=== PATIENT | female | born 1990 | race Caucasian/White ===

== ENCOUNTER 2017-03-09 18:46 | Emergency (ER) | payer OTHER ==
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
--- NOTE | 2017-03-09 21:59 | ED ORDER SUMMARY ---
..... Patient: MIRZA RALPH OrderSheet [facility] VisitID: [id number] [place] [address] 27y, F Registration Date/Time: 03/09/2017 ORDER SHEET Weight: 77.1 kg (stated) Allergies: No Known Drug Allergy GENERAL ORDERS: Knee 4V Left Urgent (19:13 03/09/2017 HBivens A.R.N.P.) (Ack 19:42 RKaruga) (20:27 KKnebel R.N.) Cervical Spine 2 or 3V Urgent (19:13 03/09/2017 HBivens A.R.N.P.) (Ack 19:42 RKaruga) (20:27 KKnebel R.N.) Urine Urgent (20:02 03/09/2017 HBivens A.R.N.P.) (20:07 KKnebel R.N.) MEDICATION ORDERS: Toradol IM 60 mg (NOW) (19:13 03/09/2017 HBivens A.R.N.P.) (19:36 KKnebel R.N.) Hydrocodone-APAP PO 5/325 mg (NOW, HIGH ALERT MEDICATION) (21:20 03/09/2017 HBivens A.R.N.P.) (21:26 KKnebel R.N.) IV FLUIDS: ORDER SHEET NOTES: [Electronically signed by Yelena HernandezR.N.PLouis (23:01 03/09/2017)] [Electronically signed by Alaina Lanza R.N. (23:18 03/09/2017)] [Electronically locked/signed by Alaina Lanza R.N. (23:18 03/09/2017)]
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
--- NOTE | 2017-03-09 21:59 | ED ORDER SUMMARY ---
..... Patient: MIRZA RALPH OrderSheet [facility] VisitID: [id number] [place] [address] 27y, F Registration Date/Time: 03/09/2017 ORDER SHEET Weight: 77.1 kg (stated) Allergies: No Known Drug Allergy GENERAL ORDERS: Knee 4V Left Urgent (19:13 03/09/2017 HBivens A.R.N.P.) (Ack 19:42 RKaruga) (20:27 KKnebel R.N.) Cervical Spine 2 or 3V Urgent (19:13 03/09/2017 HBivens A.R.N.P.) (Ack 19:42 RKaruga) (20:27 KKnebel R.N.) Urine Urgent (20:02 03/09/2017 HBivens A.R.N.P.) (20:07 KKnebel R.N.) MEDICATION ORDERS: Toradol IM 60 mg (NOW) (19:13 03/09/2017 HBivens A.R.N.P.) (19:36 KKnebel R.N.) Hydrocodone-APAP PO 5/325 mg (NOW, HIGH ALERT MEDICATION) (21:20 03/09/2017 HBivens A.R.N.P.) (21:26 KKnebel R.N.) IV FLUIDS: ORDER SHEET NOTES: [Electronically signed by Yelena HernandezR.N.PLouis (23:01 03/09/2017)] [Electronically signed by Alaina Lanza R.N. (23:18 03/09/2017)] [Electronically locked/signed by Alaina Lanza R.N. (23:18 03/09/2017)]
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
--- NOTE | 2017-03-09 23:19 | ED MED RECONCILIATION SUMMARY ---
Patient: MIRZA RALPH Medication Reconciliation Report [facility] VisitID: [id number] [place] [address] 27y, F Registration Date/Time: 03/09/2017 Weight: 77.1 kg Height/Length: 70 in. BMI: 24.4 ALLERGIES: No Known Drug Allergy The patient's Home Medications are listed below: NONE. The source(s) of the original Home Medication information: patient The following Medications were given to the patient in the Emergency Department: Toradol [IM] IM 60 mg, administered: 03/09/2017 7:36:00 PM Hydrocodone-APAP [PO] PO 1 tab, administered: 03/09/2017 9:26:00 PM The following Medications were prescribed to the patient: Flexeril 10 mg: Take 1 orally every 8 hours as needed for muscle spasm. Dispense twenty (20). No refills. Substitution is permissible. -- Yelena Hernandez A.R.N.P. Ultram 50 mg tablets: take 1-2 orally every 6 hours as needed for pain. Dispense twenty (20). No refills. Substitution is permissible. -- Yelena Hernandez A.R.N.P.
--- NOTE | 2017-03-09 23:19 | ED MED RECONCILIATION SUMMARY ---
Patient: MIRZA RALPH Medication Reconciliation Report [facility] VisitID: [id number] [place] [address] 27y, F Registration Date/Time: 03/09/2017 Weight: 77.1 kg Height/Length: 70 in. BMI: 24.4 ALLERGIES: No Known Drug Allergy The patient's Home Medications are listed below: NONE. The source(s) of the original Home Medication information: patient The following Medications were given to the patient in the Emergency Department: Toradol [IM] IM 60 mg, administered: 03/09/2017 7:36:00 PM Hydrocodone-APAP [PO] PO 1 tab, administered: 03/09/2017 9:26:00 PM The following Medications were prescribed to the patient: Flexeril 10 mg: Take 1 orally every 8 hours as needed for muscle spasm. Dispense twenty (20). No refills. Substitution is permissible. -- Yelena Hernandez A.R.N.P. Ultram 50 mg tablets: take 1-2 orally every 6 hours as needed for pain. Dispense twenty (20). No refills. Substitution is permissible. -- Yelena Hernandez A.R.N.P.
--- NOTE | 2017-03-09 23:19 | ED MAR SUMMARY ---
..... Medication Administration Record [facility] [address] [place] [address] Patient: MIRZA RALPH Visit ID: [id number] 27y, F Weight: 77.1 kg Height/Length: 70 in BMI: 24.4 ALLERGIES: No Known Drug Allergy Given 19:36 03/09/2017 Alaina Lanza [place] Medication Administered: TORADOL [IM] (KETOROLAC TROMETHAMINE), Dose: 60 mg IM. Medication Ordered: Toradol IM 60 mg (NOW). Given 21:26 03/09/2017 Alaina Lanza, [place] Medication Administered: HYDROCODONE-APAP [PO] (HYDROCODONE-ACETAMINOPHEN), Dose: 1 tab 5/325 mg Tablets PO. Medication Ordered: Hydrocodone-APAP PO 5/325 mg (NOW, HIGH ALERT MEDICATION).
--- NOTE | 2017-03-09 23:19 | ED MAR SUMMARY ---
..... Medication Administration Record [facility] [address] [place] [address] Patient: MIRZA RALPH Visit ID: [id number] 27y, F Weight: 77.1 kg Height/Length: 70 in BMI: 24.4 ALLERGIES: No Known Drug Allergy Given 19:36 03/09/2017 Alaina Lanza [place] Medication Administered: TORADOL [IM] (KETOROLAC TROMETHAMINE), Dose: 60 mg IM. Medication Ordered: Toradol IM 60 mg (NOW). Given 21:26 03/09/2017 Alaina Lanza, [place] Medication Administered: HYDROCODONE-APAP [PO] (HYDROCODONE-ACETAMINOPHEN), Dose: 1 tab 5/325 mg Tablets PO. Medication Ordered: Hydrocodone-APAP PO 5/325 mg (NOW, HIGH ALERT MEDICATION).
== END 2017-03-09 22:15 | disposition home or self-care (01) ==
LOC: ED SRH 18:46
DX: S16.1XXA Strain of muscle, fascia and tendon at neck level, initial encounter (principal); S80.212A Abrasion, left knee, initial encounter; V23.0XXA Motorcycle driver injured in collision with car, pick-up truck or van in nontraffic accident, initial encounter; Y93.89 Activity, other specified; Y92.481 Parking lot as the place of occurrence of the external cause; Y99.9 Unspecified external cause status; F17.210 Nicotine dependence, cigarettes, uncomplicated